=== PATIENT | female | born 2005 | race Caucasian/White ===

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

== ENCOUNTER 2023-12-01 01:28 | Day surgery (SDC) | payer OTHER, SELFPAY ==
[2023-11-26 15:38] VITALS: BMI 23.3
--- NOTE | 2023-11-26 15:43 | PC.NURSE ---
Addendum entered by Maria Luisa Cole RN 11/29/23 12:22: PT TO ARRIVE AT 0800 ON 12/01/23 FOR SURGERY AT 1000. Original Note: Report to the Outpatient Waiting Room, entrance under the green pavilion located off [facility], at time 1030 on date 11/29/23. Planned Procedure Time: 1230. Time changes happen often and if your time is changed the preop area will call you the afternoon before. - You and your visitor will be asked to self-screen and do not enter if you have any COVID symptoms. - A mask is optional within the hospital at this time. Patients may have clear liquids (water, carbonated beverages, clear teas, apple juice) until 3 hours prior to surgery with a maximum of 20 ounces. - No food from midnight until time of surgery Take the following medications with a SIP of water the morning of surgery: N/A DO NOT STOP ANY OF YOUR OTHER PRESCRIPTION MEDICATIONS PRIOR TO SURGERY ?EXCEPT THE FOLLOWING Medications to discontinue per physician: N/A Date to take last dose: N/A Please no make-up, nail chinese, hairspray, perfume, deodorant, or body powder the day of surgery. No jewelry (including any body piercings) or valuables the day of surgery, leave them at home. Please take a shower or bath the night before, or the morning of, surgery with an antibacterial soap. Wear comfortable, loose fitting clothing. - Jewelry must be removed prior to entering the operating room. Rings and piercings that are not removed may be cut off. - The hospital will not accept responsibility for valuables. - Please leave all valuables, including medications, at home the day of surgery. If you are going home after surgery, a licensed milk delivery driver must drive you home. - NO public transportation without another adult if you receive anesthesia. - We recommend that an adult stay with you for 24 hours following discharge. - We also recommend that you do not drive, make important decision, drink alcoholic beverages, or take any drugs that were not prescribed by your health care provider for at least 24 hours after your discharge time. Follow any additional instructions given to you from your surgeon. If you or anyone in your household have experienced Covid symptoms in the past week, please notify your surgeon or the nurse liaison at the phone number below for possible testing. Telephone instructions given to PT - ELIANA PERERA and asked if any additional questions and then verbalized understanding. Patient advised to call surgeon office or pre surgery nurse liaison [phone] if any additional questions.
--- NOTE | 2023-11-29 12:21 | PC.NURSE ---
Pt states no changes in medication or health history since initial interview. New pre-op instructions reviewed with pt. Pt denies further questions at this time.
--- NOTE | 2023-11-30 15:06 | P.PNAN_ITS ---
Anes - Initial Pre Proc Eval Procedure: Operation Date: 12/01/23 10:00 Proposed Procedures p Suction Dilation and Curettage - Tony Tena MD Date/Time: 11/30/23 15:06 Surgeon: Tony Tena MD Pre Op Diagnosis: Missed Ab Patient Data Age: 18 Gender: F Height: 1.6 m Weight: 59.9 kg Allergies Allergy/AdvReac Type Severity Reaction Status Date / Time No Known Allergies Allergy Verified 12/01/23 08:10 Home Medications Medication Instructions Recorded Confirmed Type No Home Medications 11/26/23 11/29/23 History Patient hx anesthesia problems: none Family hx anesthesia problems: none Results Review: All pre-operative results and documents have been reviewed as part of the pre- operative evaluation. [facility] Social History Social History Smoking status: Current every day smoker Tobacco type: e-cigarettes/vaping Alcohol use details: OCC WHEN NOT Substance use: current Substance use type: marijuana Living arrangements: with family Gender identity (if verbalized by the patient): Female Spiritual care concerns: No Anes - Eval Final PreProcedure Day of Procedure 11/30/23 15:06 Patient weight: normal Heart: regular rate and rhythm Lungs: clear to auscultation and normal air movement Airway: Mallampati scale class II Neurological: alert and oriented Last oral intake: >/= 8 hours ASA classification: II Emergent: no Anesthetic plan: proceed Anesthesia type and monitoring: general GIVS and standard monitoring Results Review: All pre-operative results and documents have been reviewed as part of the pre- operative evaluation. Informed Consent: The patient's anesthetic plan and its attendant risks and benefits were discussed with the patient/family/POA. Questions were solicited and answers provided to the satisfaction of the patient/family/POA.
[2023-12-01] MEDS: ACETAMINOPHEN 500 MG TABLET 1000 MG PO (08:13)
[2023-12-01] MEDS: LACTATED RINGERS 1,000 ML 30 ML IV CONT (08:40)
[2023-12-01 08:42] VITALS: BP 105/63; PULSE 80; RESP 16; TEMP 36.7; O2SAT 100
--- NOTE | 2023-12-01 09:58 | PM.IMHP ---
H&P: HPI History of Present Illness Date/Time: 12/01/23 09:58 Chief Complaint: missed ab Narrative: Patient is 18 yo female who presents for suction D&C indicated for missed . She was diagnosed with a miscarriage after US in the office demonstrated enlarged gestational sac, CRL measuring 6weeks with no FHT when previously visualized. By LMP and early US, patient should have been 11 weeks gestation. She had two episodes of bleeding and cramping, however repeat US demonstrated products of conception still present. Expectant, medical and surgical management was discussed with patient including r/b of each. Patient elects to proceed with suction D&C. Review of Systems Review of Systems: All systems reviewed & are unremarkable except as noted in HPI and below PMFSH Social History Social History Smoking status: Current every day smoker Tobacco type: e-cigarettes/vaping Alcohol use details: OCC WHEN NOT Substance use: current Substance use type: marijuana Living arrangements: with family Gender identity (if verbalized by the patient): Female Spiritual care concerns: No Meds Home Medications and Allergies Home Medications Medication Instructions Recorded Confirmed Type No Home Medications 11/26/23 11/29/23 History Allergies Allergy/AdvReac Type Severity Reaction Status Date / Time No Known Allergies Allergy Verified 12/01/23 08:10 Vital Signs Vital Signs - 24 hr 12/01/23 08:42 Temperature 98.1 F Pulse Rate 80 Respiratory Rate 16 Blood Pressure 105/63 Pulse Oximetry 100 Oxygen Delivery Room Air Exam Const: General: comfortable and no acute distress HENMT: Mouth: Yes moist mucous membranes Eyes: General: appearance normal, both eyes and all related structures Resp: Effort & Inspection: normal respiratory effort Cardio: Rate: regular rate Skin: General skin exam: normal color Extrem: General: normal to inspection Psych: Mental Status: mental status grossly normal Assessment and Plan Assessment and plan (1) Missed : Code(s): O02.1 - Missed Status: Acute Assessment and Plan: - 11 weeks gestation by early US, most recent US shows CRL measuring 6 weeks with no FHR, consistent wtih missed - r/b of expectant vs medical vs surgical management discussed with patient, who elects to proceed with suction D&C - will proceed with suction D&C
--- NOTE | 2023-12-01 10:02 | WPDHPUPDATE1 ---
History and Physical Update Update Date/Time: 12/01/23 10:02 History and Physical has been reviewed, including an updated exam of the patient. There are NO changes in the patient's condition. Risks, benefits, and alternatives have been discussed and questions answered. Patient agrees to proceed with procedure.
[2023-12-01] MEDS: LIDO 1%/EPINEPHRINE 1:100,000 20 ML VIAL 10 ML INFILTRATE (10:20)
[2023-12-01 10:36] VITALS: BP 110/71; PULSE 79; RESP 14; O2SAT 100
[2023-12-01 11:00] VITALS: BP 104/70; PULSE 75; RESP 20
--- NOTE | 2023-12-01 11:00 | W.PM.PROC2 ---
Procedure Note - Detailed Date of Procedure 12/01/23 Pre-op Diagnosis Missed Ab Post-op Diagnosis Same Procedure Performed suction D&C Surgeon Tony Tena MD Anesthesia MAC Indications missed ab measuring 6 weeks Description of Procedure The patient was then taken to the operating room with IVFs running. She was placed in the dorsal supine position where she received general anesthesia without any difficulty.?? The patient was placed in the dorsal lithotomy position using trey stirrups. EUA revealed the above findings. She was then prepped and draped in a normal sterile fashion. A time-out procedure was performed and all members of the OR team agreed on the patient and plan. A bivalved speculum was then inserted into the patient's vagina.? The anterior lip of the cervix was grasped with a single tooth tenaculum. The cervical os was dilated using joellen dilators to accommodate a 8mm curette.? The suction curette was tested outside the patient and found to be working properly.? The curette was then advanced into the intrauterine cavity and circumferentially removed.? All products of conception were removed until little tissue was seen passing through the tubing.? A sharp curettage was then performed until a gritty texture was noted.? The specimen was sent to pathology.? The single tooth tenaculum was removed from the anterior lip of the cervix and cervix was hemostatic.? The bivalve speculum was removed.? The patient tolerated the procedure well.? Sponge, lap, needle, and instrument counts were correct X3.? The patient was awakened from anesthesia and taken to the recovery room in stable condition. Estimated Blood Loss 50 Pathology Yes Complications No immediate complications Condition Stable Disposition Same day
[2023-12-01 11:30] VITALS: BP 105/62; PULSE 62; RESP 18
== END 2023-12-01 11:35 | disposition home or self-care (01) ==
PROVIDERS: Visit Provider Obstetrics & Gynecology
PROC: (CPT 59820; principal; 2023-12-01 10:00)
DX: O02.1 Missed abortion (principal); F17.290 Nicotine dependence, other tobacco product, uncomplicated; F12.90 Cannabis use, unspecified, uncomplicated
CPT/HCPCS: 59820; 36415; 85461; 86850; 86900; 86901; 88305; A9270; J1885; J2250; J2405; J2704; J3010; J7120

== ENCOUNTER 2024-07-17 09:36 | Emergency (ER) | payer OTHER, SELFPAY ==
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
[2024-07-17 09:50] VITALS: BP 135/90; PULSE 83; RESP 18; TEMP 37.2; O2SAT 100
== END 2024-07-17 10:31 | disposition home or self-care (01) ==
PROVIDERS: Emergency Provider Nurse Practitioner Family
DX: S06.0X0A Concussion without loss of consciousness, initial encounter (principal); V43.62XA Car passenger injured in collision with other type car in traffic accident, initial encounter; H60.62 Unspecified chronic otitis externa, left ear; F17.290 Nicotine dependence, other tobacco product, uncomplicated; F12.90 Cannabis use, unspecified, uncomplicated
CPT/HCPCS: 99213; G0463

== ENCOUNTER 2024-12-04 09:57 | Emergency (ER) | payer OTHER, SELFPAY ==
--- NOTE | ~2024-12-04 | XR_ITS ---
[id number] Ordering provider: Samreen Chew NP History: 19 years Female with . fall.Rt post rib pain x 1 09/28 . Comparison: None. FINDINGS: MEDIASTINUM: The cardiac silhouette is not enlarged. LUNGS: No infiltrates, effusions or pneumothorax. OTHER: No free air under the diaphragm. IMPRESSION: No acute cardiopulmonary pathology. Reviewed, dictated and finalized at location A.
[2024-12-04 10:09] VITALS: BP 128/90; PULSE 93; RESP 16; TEMP 36.7; O2SAT 100
--- NOTE | 2024-12-04 11:00 | ED.GENADULT ---
HPI - General Adult General Chief complaint: Back Pain/Injury Stated complaint: right side back pain Time Seen by Provider: 12/04/24 11:00 Source: patient, RN notes reviewed and old records reviewed Mode of arrival: ambulatory Limitations: no limitations History of Present Illness HPI narrative: 19 year old female who presents to [facility] care with complaints of injury to her right rib region which radiates to under scapula for one and half weeks. Patient reports that she fell off her bed and hit right chest area on metal bar. Patient reports pain worse with some movement and with deep breathing. Patient has not taken any OTC medication for her discomfort. MD complaint: right rib pain Onset (ago): week(s) (1.5 weeks) Location: chest (right rib area to under right scapula) Radiation: back Severity: moderate Quality: other (sharp and sore with movement) Pain Consistency: intermittent Exacerbating factors: movement Treatments prior to arrival: none Related Data Home Medications ?Medication ?Instructions ?Recorded ?Confirmed ?Last Taken ?Type etonogestrel subdermal 12/04/24 Unknown History Allergies Allergy/AdvReac Type Severity Reaction Status Date / Time No Known Allergies Allergy Verified 12/04/24 10:15 Review of Systems Review of Systems: CONSTITUTIONAL: Denies fever, chills, or sweats. EYES: Denies visual changes, redness, or discharge. ENT: Denies rhinorrhea, congestion, sore throat, or otalgia. CARDIOVASCULAR: Denies chest pain, palpitations, or edema. RESPIRATORY: Denies cough or dyspnea. GASTROINTESTINAL: Denies abdominal pain, nausea, vomiting, or diarrhea. GENITOURINARY: Denies dysuria or hematuria. SKIN: Denies rash or itching. MUSCULOSKELETAL: reports right rib pain radiating to under right scapula back area, or myalgia. NEUROLOGIC: Denies headache, numbness, or weakness. PSYCHIATRIC: Denies anxiety or depression. All systems reviewed & are unremarkable except as noted in HPI and below PMFSH Past Medical History Medical History Pyelonephritis Surgical History Surgical History History of placement of ear tubes Social History Social History Smoking status: Current every day smoker Tobacco type: e-cigarettes/vaping Alcohol use details: OCC WHEN NOT Substance use: current Substance use type: marijuana Living arrangements: with family Gender identity (if verbalized by the patient): Female Spiritual care concerns: No Comments At time of signature, agree with nursing past medical, surgical, social and family history. There is no relevant family history pertinent to the presenting complaint Exam Narrative: GENERAL: Well-appearing, well-nourished, and in no acute distress. HEAD: Normocephalic, atraumatic. EYES: PERRLA and EOMI. ENT: Nares clear, no rhinorrhea or epistaxis. Mucous membranes moist.TM's normal throat pink with no swelling NECK: Supple. no lymphadenopathy CHEST: Clear to auscultation. No respiratory distress. SAO2 100% on room air no tachypnea reports discomfort to right lateral ribs that radiates to under scapula HEART: Regular rate and rhythm. No murmur heard. Normal peripheral pulses. ABDOMEN: Soft, nontender, nondistended, normal active bowel sounds. EXTREMITIES: Normal range of motion. No edema. SKIN: Warm, dry, no rash. NEURO: No focal deficits. Alert and oriented x3. Course Course Emergency Course: Patient is aware of diagnosis, understands and agrees to treatment plan.? Anticipatory guidance given.? Patient agrees to follow-up as directed and is aware of reasons to seek care at the emergency department. Portions of this record may have been created with voice recognition software Level of Care: Express Care Visit Vital Signs Vital signs: Vital Signs Temperature 36.7 C 12/04/24 10:09 Pulse Rate 93 12/04/24 10:09 Respiratory Rate 16 12/04/24 10:09 Blood Pressure 128/90 12/04/24 10:09 Pulse Oximetry 100 12/04/24 10:09 Oxygen Delivery Room Air 12/04/24 10:09 Temperature 36.7 C 12/04/24 10:09 Pulse Rate 93 12/04/24 10:09 Respiratory Rate 16 12/04/24 10:09 Blood Pressure 128/90 12/04/24 10:09 Pulse Oximetry 100 12/04/24 10:09 Oxygen Delivery Room Air 12/04/24 10:09 Reviewed Medical Decision Making MDM Narrative Medical decision making narrative: Exam findings and imaging show no acute concerns or changes; patient is non-toxic appearing and is in no distress.? Patient is appropriate for outpatient treatment and follow-up Differential Diagnosis Differential Diagnosis: rib contusion, fracture of rib, costochondritis Medical Records Medical records reviewed: Yes I reviewed the external patient's medical records. Vital Signs Vital Signs: Vital Signs Temperature 36.7 C 12/04/24 10:09 Pulse Rate 93 12/04/24 10:09 Respiratory Rate 16 12/04/24 10:09 Blood Pressure 128/90 12/04/24 10:09 Pulse Oximetry 100 12/04/24 10:09 Oxygen Delivery Room Air 12/04/24 10:09 Temperature 36.7 C 12/04/24 10:09 Pulse Rate 93 12/04/24 10:09 Respiratory Rate 16 12/04/24 10:09 Blood Pressure 128/90 12/04/24 10:09 Pulse Oximetry 100 12/04/24 10:09 Oxygen Delivery Room Air 12/04/24 10:09 reviewed Imaging Data Attestation: I personally reviewed and interpreted this imaging study as follows: My impression: no acute cardiopulmonary findings no fracture of ribs noted Radiologist's impression: [address] [employer] [place] [id number] XRay Report Signed Patient: Georgette Farrell : 2005 MR#: [id number] Age: 19 Acct:[id number] Loc: [facility] ADM Date: 12/04/24Attending Dr: Ordering Physician: Samreen Chew APRN Date of Service: 12/04/24 Procedure(s): XR ribs RT w PA CXR Accession Number(s): [id number] cc: [employer] PH[employer]ICIAN; Samreen Chew APRN~ [id number] Ordering provider: Samreen Chew NP History: 19 years Female with . fall.Rt post rib pain x 1 09/28 . Comparison: None. FINDINGS: MEDIASTINUM: The cardiac silhouette is not enlarged. LUNGS: No infiltrates, effusions or pneumothorax. OTHER: No free air under the diaphragm. IMPRESSION: No acute cardiopulmonary pathology. Reviewed, dictated and finalized at location A. Please be advised this is a medical document. It is intended for [id number] communication. It is written in medical language and may contain unfamiliar abbreviations or verbiage. Medical documents are intended to carry relevant information, facts as evident, and the clinical opinion of the practitioner at the time of the encounter. This report may have been done utilizing a voice recognition system. Attempts have been made to correct errors. However, there may be uncorrected grammatical, spelling, and recognition errors present. The file time of this note does not necessarily represent the time of service. Dictated By: Noble Simental MD 12/04/24 1117 Signed By: <Electronically signed by Noble Simental MD in OV> Critical Care Time Critical Care Time Critical Care Time: No Discharge Plan Discharge Clinical Impression: Contusion of rib on right side Qualifiers: Encounter type: initial encounter Qualified Code(s): S20.211A - Contusion of right front wall of thorax, initial encounter Patient Disposition: Home, Self-Care Condition: Stable Instructions: Rib Contusion (ED) Additional Instructions: Tylenol for lesser pain Ibuprofen regularly for the next 2-3 days for the inflammation take 600 mg of ibuprofen 2-3 times daily with food for the next 2 days Prednisone 20 mg 2 times daily for 5 days Warmth to right rib area Follow-up with PCP if further problems or concerns Ice to the area 20-30 minutes 4-6 times a day Elevate above heart If your symptoms persist, change or worsen significantly before you can contact your personal physician then please, without delay, go to the emergency department for further evaluation. Follow-up with PCP in 7-10 days or sooner if needed Follow up with PCP soon in regards to your blood pressure which is elevated above threshold for referral. Blood pressure above 120/80 may indicate pre-hypertension. 128/90 Patient Language: Malagasy Prescriptions: New prednisone 20 mg tablet 20 mg PO BID Qty: 10 0RF No Action etonogestrel [Nexplanon] subdermal Follow-up/Referrals: PHYSICIAN,[employer] [Primary Care Provider] - Time of Disposition: 11:33 Quality [place] Coma Scale Eyes: Open Verbal: Oriented and Alert Motor: Follows Commands Martin Coma Total Score: 15
== END 2024-12-04 11:37 | disposition home or self-care (01) ==
PROVIDERS: Emergency Provider Registered Nurse
DX: S20.211A Contusion of right front wall of thorax, initial encounter (principal); W06.XXXA Fall from bed, initial encounter; F17.290 Nicotine dependence, other tobacco product, uncomplicated; F12.90 Cannabis use, unspecified, uncomplicated
CPT/HCPCS: 71101; 99213; G0463